=== PATIENT | male | born 1980 | race Caucasian/White ===

== ENCOUNTER 2022-01-20 16:20 | Emergency (ER) | payer OTHER | END 2022-01-20 20:27 | disposition left against medical advice (07) | LOC: FER 16:20 | DX: N50.811 Right testicular pain (principal); G43.909 Migraine, unspecified, not intractable, without status migrainosus; R10.32 Left lower quadrant pain; R30.0 Dysuria; R11.0 Nausea; Z53.29 Procedure and treatment not carried out because of patient's decision for other reasons; Z28.310 Unvaccinated for COVID-19 | CPT/HCPCS: 99281 ==